=== PATIENT | female | born 1985 | race Asian ===

== ENCOUNTER 2016-09-15 22:51 | Emergency (ER) | payer OTHER ==
--- NOTE | 2016-09-15 23:15 | ER Document Report ---
ED Medical Screen (RME) - General Chief Complaint: Psych Problem Stated Complaint: PSYCH EVALUATION Mode of Arrival: Medic Information source: Patient Notes: Patient was found hanging outside of [facility] by law enforcement and EMS was called for possible psych evaluation. Patient states that she is currently homeless and has been staying at the [facility] for the past 3 days. Patient denies any current complaints aside from anxiety and stress. Patient states that she takes Adderall, Xanax and Ambien although denies any medical problems. Patient denies any visual or auditory hallucinations. Patient denies any suicidal or homicidal ideation. TRAVEL OUTSIDE OF THE [place] IN LAST 30 DAYS: No - Related Data Allergies/Adverse Reactions: tramadol [Tramadol] Allergy (Verified 11/21/14 05:52) Past Medical History Renal/ Medical History: Denies: Hx Peritoneal Dialysis Psychiatric Medical History: Reports: Hx Attention Deficit Hyperactivity Disorder, Hx Depression Past Surgical History: Reports: Hx Breast Surgery - augmentation - Immunizations Hx Diphtheria, Pertussis, Tetanus Vaccination: Yes Physical Exam - Vital signs Vitals: Temp Pulse Resp BP Pulse Ox 98.1 F 109 H 18 137/101 H 98 09/15/16 23:06 09/15/16 23:06 09/15/16 23:06 09/15/16 23:06 09/15/16 23:06 - Neurological Lugoff Coma Scale Eye Opening: Spontaneous Mirza Coma Scale Verbal: Oriented Lugoff Coma Scale Motor: Obeys Commands Lugoff Coma Scale Total: 15 - Psychological Associated symptoms: Flat affect, Other - Patient slow to respond to questions. Course - Vital Signs Vital signs: Temp Pulse Resp BP Pulse Ox 98.1 F 109 H 18 137/101 H 98 09/15/16 23:06 09/15/16 23:06 09/15/16 23:06 09/15/16 23:06 09/15/16 23:06
[2016-09-16 02:22] LABS: ABSOLUTE BASOPHILS # (AUTO) 0.1 10^3/uL (0.0-0.2); ABSOLUTE EOSINOPHILS # (AUTO) 0.3 10^3/uL (0.0-0.6); ABSOLUTE LYMPHOCYTES (AUTO) 2.4 10^3/uL (0.5-4.7); ABSOLUTE MONOCYTES (AUTO) 1.2 10^3/uL (0.1-1.4); ABSOLUTE NEUT (AUTO) 9.9 10^3/uL (1.7-8.2); BASOPHILS % (AUTO) 0.8 % (0-2); EOSINOPHILS % (AUTO) 1.9 % (0-6); HEMOGLOBIN 15.5 g/dL (12.0-15.5); HGB HCT DIFFERENCE 1.5; LYMPHOCYTES % (AUTO) 17.1 % (13-45); MEAN CORPUSCULAR HEMOGLOBIN 31.1 pg (27.0-33.4); MEAN CORPUSCULAR HGB CONC 34.4 g/dL (32.0-36.0); MEAN CORPUSCULAR VOLUME 91 fl (80-97); MONOCYTES % (AUTO) 8.9 % (3-13); RED BLOOD COUNT 4.98 10^6/uL (3.72-5.28); RED CELL DISTRIBUTION WIDTH 13.1 % (11.5-14.0); SEGMENTED NEUTROPHILS % (AUTO) 71.3 % (42-78); WHITE BLOOD COUNT 13.9 10^3/uL (4.0-10.5)
[2016-09-16 02:52] LABS: ALANINE AMINOTRANSFERASE 23 U/L (9-52); ALBUMIN 5.1 g/dL (3.5-5.0); ALKALINE PHOSPHATASE 74 U/L (38-126); ASPARTATE AMINO TRANSFERASE 20 U/L (14-36); BILIRUBIN,DIRECT 0.3 mg/dL (0.0-0.4); BILIRUBIN,TOTAL 1.1 mg/dL (0.2-1.3); BLOOD UREA NITROGEN 10 mg/dL (7-20); CALCIUM 9.6 mg/dL (8.4-10.2); CHLORIDE 99 mmol/L (98-107); CREATININE RESULT 0.72 mg/dL (0.52-1.25); GLUCOSE 101 mg/dL (75-110); POTASSIUM 3.4 mmol/L (3.6-5.0); SODIUM 141.9 mmol/L (137-145); TOTAL PROTEIN 8.7 g/dL (6.3-8.2)
[2016-09-16 02:55] LABS: ALCOHOL < 10 mg/dL (NONE DETECTED); ANION GAP 19 (5-19); CARBON DIOXIDE 24 mmol/L (22-30)
--- NOTE | 2016-09-16 07:04 | ER Document Report ---
ED General - General Mode of Arrival: Medic Information source: Patient TRAVEL OUTSIDE OF THE [place].S. IN LAST 30 DAYS: No - HPI Onset: This morning Associated symptoms: Other - see notes above <ANITHA LI - Last Filed: 09/16/16 09:34> <JOLANTA BABB - Last Filed: 10/05/16 15:37> - General Chief Complaint: Psych Problem Stated Complaint: PSYCH EVALUATION Notes: 31 year old female with history of ADHD and anxiety presents to the ED after [employer] was called when a local [employer] found the patient in their store for the past 3 days. Patient reports that she wasn't causing any trouble and was walking around the store. Patient states that she recently released from group home after being charged for trespassing at the [facility]. Patient states that she has family around the area, but does not know their phone number or where they live. (ANITHA LI) - Related Data Allergies/Adverse Reactions: tramadol [Tramadol] Allergy (Verified 11/21/14 05:52) Past Medical History - General Information source: Patient - Social History Smoking Status: Unknown if Ever Smoked Family History: Reviewed & Not Pertinent Patient has suicidal ideation: No Patient has homicidal ideation: No Renal/ Medical History: Denies: Hx Peritoneal Dialysis Psychiatric Medical History: Reports: Hx Anxiety, Hx Attention Deficit Hyperactivity Disorder, Hx Depression Past Surgical History: Reports: Hx Breast Surgery - augmentation - Immunizations Hx Diphtheria, Pertussis, Tetanus Vaccination: Yes <ANITHA LI - Last Filed: 09/16/16 09:34> Review of Systems - Review of Systems Constitutional: No symptoms reported EENT: No symptoms reported Cardiovascular: No symptoms reported Respiratory: No symptoms reported Gastrointestinal: No symptoms reported Genitourinary: No symptoms reported Female Genitourinary: No symptoms reported Musculoskeletal: No symptoms reported Skin: No symptoms reported Hematologic/Lymphatic: No symptoms reported Neurological/Psychological: No symptoms reported -: Yes All other systems reviewed and negative <ANITHA LI - Last Filed: 09/16/16 09:34> Physical Exam - Vital signs Interpretation: Tachycardic - General General appearance: Alert In distress: None - HEENT Head: Normocephalic, Atraumatic Eyes: Normal Extraocular movements intact: Yes Pupils: PERRL - Respiratory Respiratory status: No respiratory distress Breath sounds: Normal - Cardiovascular Rhythm: Regular, Tachycardia Heart sounds: Normal auscultation - Abdominal Inspection: Normal Distension: No distension Tenderness: Nontender - Back Back: Normal - Extremities General upper extremity: Normal inspection, Normal ROM General lower extremity: Normal inspection, Normal ROM, Normal weight bearing - Neurological Neuro grossly intact: Yes Cognition: Normal Orientation: AAOx4 Mirza Coma Scale Eye Opening: Spontaneous [place] Coma Scale Verbal: Oriented Mirza Coma Scale Motor: Obeys Commands Mirza Coma Scale Total: 15 Speech: Normal - Psychological Associated symptoms: Normal affect, Normal mood - Skin Skin Temperature: Warm Skin Moisture: Dry Skin Color: Normal <ANITHA LI - Last Filed: 09/16/16 09:34> Course - Laboratory Result Diagrams: 09/16/16 02:07 09/16/16 02:07 <ANITHA LI - Last Filed: 09/16/16 09:34> - Laboratory Result Diagrams: 09/16/16 02:07 09/16/16 02:07 <JOLANTA BABB - Last Filed: 10/05/16 15:37> - Re-evaluation Re-evalutation: 09/16/16 11:53 Patient presents emergency Department completely asymptomatic with has been walking around [facility] for 3 days because she is homeless. Says she just got out of group home where she was arrested for trespassing. She said she doesn't have any place to go right now they called for trespassing get at [facility] and the police brought her here to be evaluated she is of sound mind and judgment with a GCS of 15 and no current medical complaints however initial blood pressure was elevated and she was tachycardic at 1:15. She denies any drug or alcohol abuse. Fall workup ensued including EKG which showed sinus rhythm at 81 bpm due to the tachycardia did a further workup and it showed positive for amphetamines on her tox screen which could explain some of the tachycardia. She does not have an acute pulmonary embolus anemia or any acute abdominal findings or concerns at could otherwise be explained by the elevated heart rate. She is given a family doctor for follow-up in 2 days to recheck and reevaluate her blood pressure and for further assessment and evaluation. She is not suicidal homicidal and is stable for discharge. (JOLANTA BABB) - Vital Signs Vital signs: Temp Pulse Resp BP Pulse Ox 97.4 F 82 16 143/96 H 98 09/16/16 11:22 09/16/16 11:22 09/16/16 11:22 09/16/16 11:22 09/16/16 11:22 - Laboratory Laboratory results interpreted by me: 09/16/16 09/16/16 09/16/16 02:07 02:07 07:30 WBC 13.9 H Absolute Neutrophils 9.9 H Potassium 3.4 L Total Protein 8.7 H Albumin 5.1 H Urine Blood LARGE H Ur Leukocyte Esterase TRACE H Salicylates < 1.0 L Acetaminophen < 10 L - EKG Interpretation by Me Additional EKG results interpreted by me: 09/16/16 11:55 EKG shows sinus rhythm at [address] segment elevation or depression ( JOLANTA BABB) Discharge <ANITHA LI - Last Filed: 09/16/16 09:34> <JOLANTA BABB - Last Filed: 10/05/16 15:37> - Discharge Clinical Impression: medical evaluation, tachycardia with positive tox screen Condition: Stable Disposition: HOME, SELF-CARE Additional Instructions: You have been seen and evaluated in the emergency department after the police were notified when your at [facility]. Right now he don't have any complaints of any headache blurred vision double vision chest pain shortness of breath you have contacted the shelters have not responded to you yet. Initially on examination her blood pressure was slightly elevated I'm giving you a family doctor for follow-up to get that rechecked reevaluated. Otherwise with no current complaints or acute findings that he follow primary care physician to 3 days return to the emergency per minute sooner for increasing worsening or new symptoms Referrals: [facility] [Provider Group] - Follow up in 3-5 days (Follow-up appointment to be seen in 2-3 days with primary care physician return for increasing worsening or new symptoms) Scribe Attestation: 09/16/16 11:57 I personally performed the services described in the documentation reviewed the documentation recorded by my scribe in my presence and it accurately and completely records my words and actions (JOLANTA BABB) Scribe Documentation - Scribe Written by Soila:: Soila Bowman, 09/16/2016 0944 acting as scribe for :: Branden <ANITHA LI - Last Filed: 09/16/16 09:34>
[2016-09-16 08:26] LABS: APPEARANCE,URINE CLEAR; BILIRUBIN,URINE NEGATIVE (NEGATIVE); GLUCOSE, URINE NEGATIVE (NEGATIVE); KETONES,URINE NEGATIVE (NEGATIVE); LEUKOCYTE ESTERASE,URINE TRACE (NEGATIVE); NITRITE,URINE NEGATIVE (NEGATIVE); PROTEIN,URINE NEGATIVE (NEGATIVE); URINE SPECIFIC GRAVITY 1.005; UROBILINOGEN,URINE NEGATIVE mg/dL (<2.0)
[2016-09-16 08:42] LABS: URINE BARBITURATES SCREEN NEGATIVE; URINE METHADONE SCREEN NEGATIVE; URINE OPIATES LOW NEGATIVE; URINE PHENCYCLIDINE SCREEN NEGATIVE
[2016-09-16 08:51] LABS: TROPONIN I < 0.012 ng/mL
[2016-09-16 11:24] VITALS: BP 143/96
--- NOTE | 2016-09-17 17:01 | EKG REPORT ---
SEVERITY:- NORMAL ECG - SINUS RHYTHM : Confirmed by: Idalmis Torres MD 17-Sep-2016 17:00:23
== END 2016-09-16 12:05 | disposition home or self-care (01) ==
LOC: ER 22:51
DX: R00.0 Tachycardia, unspecified (principal); T43.622A Poisoning by amphetamines, intentional self-harm, initial encounter; F90.9 Attention-deficit hyperactivity disorder, unspecified type; Y92.512 Supermarket, store or market as the place of occurrence of the external cause; Z88.6 Allergy status to analgesic agent; Z59.0 Homelessness
CPT/HCPCS: 36415; 71020; 80053; 80307; 81001; 82553; 84484; 84703; 85025; 85379; 93005; 93010; 99284

== ENCOUNTER 2018-04-24 14:47 | Inpatient (IN) | payer OTHER ==
[2018-04-24] MEDS ORDERED: KETOROLAC TROMETHAMINE INJ/PF 30 MG/1 ML SDV IV ONE (15:59)
[2018-04-24] MEDS ORDERED: ONDANSETRON HCL INJ/PF 4 MG/2 ML SDV IV ONE ×2 (15:59→21:23)
[2018-04-24] MEDS ORDERED: DICYCLOMINE HCL INJ 20 MG/2 ML AMPULE IM ONE (16:00)
--- NOTE | 2018-04-24 16:02 | ER Document Report ---
ED Medical Screen (RME) - General Chief Complaint: Vaginal Pain Stated Complaint: ABDOMINAL PAIN Time Seen by Provider: 04/24/18 15:56 Notes: Diffuse abdominal pain, nausea vomiting, loose stools since this morning. Diffuse tenderness over the abdomen, palpable fecal mass TRAVEL OUTSIDE OF THE [place] IN LAST 30 DAYS: No - Related Data Allergies/Adverse Reactions: tramadol [Tramadol] Allergy (Verified 04/24/18 14:49) Past Medical History Renal/ Medical History: Denies: Hx Peritoneal Dialysis Psychiatric Medical History: Reports: Hx Anxiety, Hx Attention Deficit Hyperactivity Disorder, Hx Depression Past Surgical History: Reports: Hx Breast Surgery - augmentation - Immunizations Hx Diphtheria, Pertussis, Tetanus Vaccination: Yes Physical Exam - Vital signs Vitals: Temp Pulse Resp BP Pulse Ox 99.0 F 107 H 16 113/81 97 04/24/18 15:21 04/24/18 15:21 04/24/18 15:21 04/24/18 15:21 04/24/18 15:21 Course - Vital Signs Vital signs: Temp Pulse Resp BP Pulse Ox 99.0 F 107 H 16 113/81 97 04/24/18 15:21 04/24/18 15:21 04/24/18 15:21 04/24/18 15:21 04/24/18 15:21
[2018-04-24 16:42] LABS: HEMATOCRIT 40.7 % (36.0-47.0); HEMOGLOBIN 13.9 g/dL (12.0-15.5); MEAN CORPUSCULAR HGB CONC 34.2 g/dL (32.0-36.0); MEAN CORPUSCULAR VOLUME 91 fl (80-97); PLATELET COUNT 327 10^3/uL (150-450); RED BLOOD COUNT 4.48 10^6/uL (3.72-5.28); WHITE BLOOD COUNT 24.9 10^3/uL (4.0-10.5)
[2018-04-24 16:53] LABS: APPEARANCE,URINE SLIGHTLY-CLOUDY; BILIRUBIN,URINE NEGATIVE (NEGATIVE); COLOR,URINE YELLOW; GLUCOSE, URINE NEGATIVE (NEGATIVE); KETONES,URINE NEGATIVE (NEGATIVE); LEUKOCYTE ESTERASE,URINE MODERATE (NEGATIVE); NITRITE,URINE NEGATIVE (NEGATIVE); PROTEIN,URINE 30 mg/dL (NEGATIVE); URINE SPECIFIC GRAVITY 1.026; UROBILINOGEN,URINE NEGATIVE mg/dL (<2.0)
[2018-04-24 16:56] LABS: ALANINE AMINOTRANSFERASE 16 U/L (9-52); ALBUMIN 4.4 g/dL (3.5-5.0); ALKALINE PHOSPHATASE 65 U/L (38-126); ANION GAP 17 (5-19); ASPARTATE AMINO TRANSFERASE 16 U/L (14-36); BILIRUBIN,DIRECT 0.2 mg/dL (0.0-0.4); BILIRUBIN,TOTAL 0.7 mg/dL (0.2-1.3); BLOOD UREA NITROGEN 15 mg/dL (7-20); CALCIUM 9.3 mg/dL (8.4-10.2); CARBON DIOXIDE 22 mmol/L (22-30); CHLORIDE 99 mmol/L (98-107); GLUCOSE 107 mg/dL (75-110); POTASSIUM 3.9 mmol/L (3.6-5.0); SODIUM 137.9 mmol/L (137-145); TOTAL PROTEIN 7.8 g/dL (6.3-8.2)
[2018-04-24 17:03] LABS: ABSOLUTE LYMPHOCYTES# (MANUAL) 1.5 10^3/uL (0.5-4.7); ABSOLUTE MONOCYTES # (MANUAL) 0.2 10^3/uL (0.1-1.4); ABSOLUTE NEUTROPHILS# (MANUAL) 23.2 10^3/uL (1.7-8.2); BAND NEUTROPHILS % (MANUAL) 7 % (3-5); BASOPHILS % (MANUAL) 0 % (0-2); EOSINOPHILS % (MANUAL) 0 % (0-6); LYMPHOCYTES % (MANUAL) 4 % (13-45); MONOCYTES % (MANUAL) 1 % (3-13); SEGMENTED NEUTROPHILS % (MAN) 86 % (42-78); TOTAL CELLS COUNTED 100
[2018-04-24 17:05] LABS: PLATELET COMMENT ADEQUATE; RBC MORPHOLOGY COMMENT NORMO-CYTIC/CHROMIC; TOXIC GRANULATION SLIGHT; TOXIC VACUOLATION PRESENT
--- NOTE | 2018-04-24 17:40 | RADIOLOGY REPORT (SQ) ---
EXAM DESCRIPTION: ACUTE ABDOMEN SERIES COMPLETED DATE/TIME: 04/24/2018 5:28 pm REASON FOR STUDY: abdominal pain COMPARISON: None. NUMBER OF VIEWS: Three views. TECHNIQUE: Frontal chest, supine abdomen and upright/decubitus abdomen radiographic images acquired. LIMITATIONS: None. FINDINGS: CHEST: Lungs clear of infiltrates. FREE AIR: None. No abnormal gas collections. BOWEL GAS PATTERN: Nonobstructive pattern. No dilated loops or air fluid levels. CALCIFICATIONS: No suspicious calcifications. HARDWARE: An IUD is present. SOFT TISSUES: No gross mass or suggestion of organomegaly. BONES: No acute fracture. No worrisome bone lesions. OTHER: No other significant finding. IMPRESSION: NO RADIOGRAPHIC EVIDENCE FOR ACUTE ABDOMINAL DISEASE. TECHNICAL DOCUMENTATION: JOB ID: [id number] [employer]- All Rights Reserved Reading location - IP/workstation name: [email or web address]
[2018-04-24] MEDS ORDERED: LIDOCAINE 1% INJ-PF (10 MG/ML) 30 ML SDV INJ ONE (18:57)
[2018-04-24] MEDS ORDERED: CEFTRIAXONE INJ 250 MG VIAL IM ONE (18:57)
[2018-04-24] MEDS ORDERED: AZITHROMYCIN 250 MG TABLET PO ONE (18:57)
--- NOTE | 2018-04-24 19:03 | ER Document Report ---
ED GI/ - General Chief Complaint: Vaginal Pain Stated Complaint: ABDOMINAL PAIN Time Seen by Provider: 04/24/18 15:56 Mode of Arrival: Ambulatory Information source: Patient Notes: 32-year old female presents to ED for complaint of severe abdominal pain nausea and vomiting pelvic pain with vaginal discharge and painful urination last 4 days. She states she has had a fever nausea and vomiting since yesterday. Alert and oriented respirations regular and unlabored. She was seen in the pit area before I saw her. TRAVEL OUTSIDE OF THE [place] IN LAST 30 DAYS: No - Related Data Allergies/Adverse Reactions: tramadol [Tramadol] Allergy (Verified 04/24/18 14:49) Past Medical History - General Last Menstrual Period: 04/16/18 - Social History Smoking Status: Never Smoker Chew tobacco use (# tins/day): No Frequency of alcohol use: Rare Drug Abuse: None Family History: Reviewed & Not Pertinent Patient has suicidal ideation: No Patient has homicidal ideation: No Renal/ Medical History: Denies: Hx Peritoneal Dialysis Psychiatric Medical History: Reports: Hx Anxiety, Hx Attention Deficit Hyperactivity Disorder, Hx Depression Past Surgical History: Reports: Hx Breast Surgery - augmentation - Immunizations Hx Diphtheria, Pertussis, Tetanus Vaccination: Yes Review of Systems - Review of Systems Notes: REVIEW OF SYSTEMS: CONSTITUTIONAL : She states she has had fevers chills abdominal pain vaginal pain painful urination and pelvic pain with nausea and vomiting for the last 4 days EENT: Denies eye, ear, throat, or mouth pain or symptoms. Denies nasal or sinus congestion or discharge. Denies throat, tongue, or mouth swelling or difficulty swallowing. CARDIOVASCULAR: Denies chest pain. Denies palpitations or racing or irregular heart beat. Denies ankle edema. RESPIRATORY: Denies cough, cold, or chest congestion. Denies shortness of breath, difficulty breathing, or wheezing. GASTROINTESTINAL: She complains of severe generalized abdominal pain and pelvic pain with vaginal discharge nausea and vomiting. She denies diarrhea . Denies blood in vomitus, stools, or per rectum. Denies black, tarry stools. Denies constipation. GENITOURINARY: Patient complains of burning painful urination for the last 4 days FEMALE GENITOURINARY: Patient complains of pelvic pain vaginal discharge for the last 4 days MUSCULOSKELETAL: Denies back or neck pain or stiffness. Denies joint pain or swelling. SKIN: Denies rash, lesions or sores. HEMATOLOGIC : Denies easy bruising or bleeding. LYMPHATIC: Denies swollen, enlarged glands. NEUROLOGICAL: Denies confusion or altered mental status. Denies passing out or loss of consciousness. Denies dizziness or lightheadedness. Denies headache. Denies weakness or paralysis or loss of use of either side. Denies problems with gait or speech. Denies sensory loss, numbness, or tingling. Denies seizures. PHYSICAL EXAMINATION: GENERAL: [id number], well-nourished and in no acute distress. HEAD: Atraumatic, normocephalic. EYES: Pupils equal round and reactive to light, extraocular movements intact, conjunctiva are normal. ENT: Nares patent, oropharynx clear without exudates. Moist mucous membranes. NECK: Normal range of motion, supple without lymphadenopathy LUNGS: Breath sounds clear to auscultation bilaterally and equal. No wheezes rales or rhonchi. HEART: Regular rate and rhythm without murmurs ABDOMEN: Abdomen soft very tender generalized with severe tenderness to the pelvic area. She states her pelvic is to painful at this time to take a speculum. Patient was self swabs with the swab she stated she would rather do that. Female : deferred Musculoskeletal: Normal range of motion, no pitting or edema. No cyanosis. NEUROLOGICAL: Cranial nerves grossly intact. Normal speech, normal gait. Normal sensory, motor exams PSYCH: Normal mood, normal affect. SKIN: Warm, Dry, normal turgor, no rashes or lesions noted. PSYCHIATRIC: Denies anxiety or stress. Denies depression, suicidal ideation, or homicidal ideation. ALL OTHER SYSTEMS REVIEWED AND NEGATIVE. Dictation was performed using [employer] voice recognition software Physical Exam - Vital signs Vitals: Temp Pulse Resp BP Pulse Ox 99.0 F 107 H 16 113/81 97 04/24/18 15:21 04/24/18 15:21 04/24/18 15:21 04/24/18 15:21 04/24/18 15:21 Course - Re-evaluation Re-evalutation: 04/24/18 21:[address] Peacock who stated the patient needed to be admitted to hospitalist for sepsis. Consult to Dr. Harp, the Hospital, who stated the patient looked more dehydration according to the labs, than septic and that she needed to be examined by [facility] before Dr Harp would accept the patient. 04/25/18 01:04 When the results of the GC and Chlamydia came back I called Dr. Anton Morrell for admission. He accepted the patient for PID sepsis and stated she could go to the second floor. He recommended Rocephin and doxycycline be ordered IV these were ordered before she went to the floor. - Vital Signs Vital signs: Temp Pulse Resp BP Pulse Ox 98.7 F 107 H 19 113/75 100 04/24/18 22:00 04/24/18 15:21 04/24/18 22:08 04/24/18 22:08 04/24/18 22:08 - Laboratory Result Diagrams: 04/24/18 16:27 04/24/18 16:27 Laboratory results interpreted by me: 04/24/18 04/24/18 04/24/18 16:27 16:27 16:27 WBC 24.9 H Seg Neuts % (Manual) 86 H Band Neutrophils % 7 H Lymphocytes % (Manual) 4 L Monocytes % (Manual) 1 L Abs Neuts (Manual) 23.2 H Creatinine 0.48 L Lactic Acid Urine Protein 30 H Urine Blood MODERATE H Ur Leukocyte Esterase MODERATE H N.gonorrhoeae DNA (PCR) 04/24/18 04/24/18 19:20 19:35 WBC Seg Neuts % (Manual) Band Neutrophils % Lymphocytes % (Manual) Monocytes % (Manual) Abs Neuts (Manual) Creatinine Lactic Acid 2.3 H Urine Protein Urine Blood Ur Leukocyte Esterase N.gonorrhoeae DNA (PCR) DETECTED H Discharge - Discharge Clinical Impression: Pelvic pain, PID (acute pelvic inflammatory disease), Gonorrhea Abdominal pain Qualifiers: Abdominal location: lower abdomen, unspecified Qualified Code(s): R10.30 - Lower abdominal pain, unspecified Sepsis Qualifiers: Sepsis type: sepsis due to unspecified organism Qualified Code(s): A41.9 - Sepsis, unspecified organism Disposition: ADMITTED INPATIENT Admitting Provider: [facility]
[2018-04-24] MEDS ORDERED: LEVOFLOXACIN 500 MG/D5W RTU 500 MG/100 ML RTUPB IV ONE (19:31)
[2018-04-24] MEDS ORDERED: VANCOMYCIN HCL INJ 1000 MG VIAL IV ONE (19:32)
[2018-04-24] MEDS ORDERED: RINGERS SOLUTION,LACTATED 1,000 ML IV ONE (19:35)
[2018-04-24 19:39] LABS: BACTERIA (WET MOUNT) 3+ BACTERIA SEEN; EPITHELIALS (WET MOUNT) 3+ EPITHELIALS SEEN; T.VAGINALIS (WET MOUNT) NO TRICHOMONAS SEEN; WBCS (WET MOUNT) 3+ WBCS SEEN; YEAST (WET MOUNT) NO YEAST SEEN
--- NOTE | 2018-04-24 20:44 | RADIOLOGY REPORT (SQ) ---
EXAM DESCRIPTION: CT ABD/PELVIS WITH IV ONLY COMPLETED DATE/TIME: 04/24/2018 8:19 pm REASON FOR STUDY: abdominal pain pelvic pain fever COMPARISON: None. TECHNIQUE: CT scan of the abdomen and pelvis performed using helical scanning technique with dynamic intravenous contrast injection. No oral contrast. Images reviewed with lung, soft tissue, and bone windows. Reconstructed coronal and sagittal MPR images reviewed. Delayed images for evaluation of the urinary system also acquired. All images stored on PACS. All CT scanners at this facility use dose modulation, iterative reconstruction, and/or weight based d osing when appropriate to reduce radiation dose to as low as reasonably achievable (ALARA). [facility]: Dose Right [facility]: CareDose [facility]: Dose Right [facility]: Teradose 4D [facility]: TRA CONTRAST TYPE AND DOSE: contrast/concentration: Isovue 350.00 mg/ml; Total Contrast Delivered: 61.0 ml; Total Saline Delivered: 53.0 ml RENAL FUNCTION: BUN 15 creatinine 0.5 RADIATION DOSE: CT Rad equipment meets quality standard of care and radiation dose reduction techniq ues were employed. CTDIvol: 4.8 - 4.9 mGy. DLP: 506 mGy-cm.. LIMITATIONS: None. FINDINGS: LOWER CHEST: No significant findings. No nodules or infiltrates. LIVER: Normal size. No masses. No dilated ducts. SPLEEN: Normal size. No focal lesions. PANCREAS: No masses. No significant calcifications. No adjacent inflammation or peripancreatic fluid collections. Pancreatic duct not dilated. GALLBLADDER: No identified stones by CT criteria. No inflammatory changes to suggest cholecystitis. ADRENAL GLANDS: No significant masses or asymmetry. RIGHT KIDNEY AND URETER: No solid masses. No significant calcifications. No hydronephrosis or hyd roureter. LEFT KIDNEY AND URETER: No solid masses. No significant calcifications. No hydronephrosis or hydr oureter. AORTA AND VESSELS: No aneurysm. No dissection. Renal arteries, SMA, celiac without stenosis. RETROPERITONEUM: No retroperitoneal adenopathy, hemorrhage or masses. BOWEL AND PERITONEAL CAVITY: There is some radiopaque material in the right colon. There is a modera te amount of stool in the colon. No bowel inflammatory changes are seen. No bowel mass is seen. APPENDIX: Normal. PELVIS: Urinary bladder is normal. An IUD is present in the uterus. No pelvic mass is seen. No sig nificant free fluid is seen in the pelvis. ABDOMINAL WALL: No masses. No hernias. BONES: No significant or acute findings. OTHER: No other significant finding. IMPRESSION: NO SIGNIFICANT OR ACUTE FINDING IN THE ABDOMEN OR PELVIS ON CT SCAN WITH IV CONTRAST. TECHNICAL DOCUMENTATION: JOB ID: [id number] Quality ID # [id number]: Final reports with documentation of one or more dose reduction techniques (e.g., Au tomated exposure control, adjustment of the mA and/or kV according to patient size, use of iterative reconstruction technique) 2010 [employer]- All Rights Reserved Reading location - IP/workstation name: [email or web address]
[2018-04-24 21:04] LABS: CHLAM PCR NOT DETECTED (NOT DETECT); GON PCR DETECTED (NOT DETECT)
[2018-04-24] MEDS ORDERED: MORPHINE SULFATE 10 MG/ML INJ IV ONE (21:23)
[2018-04-24] MEDS ORDERED: CEFTRIAXONE 1 GM/D5W RTU 1 GM/50 ML RTUPB IV ONE (22:03)
[2018-04-24] MEDS ORDERED: DOXYCYCLINE HYCLATE INJ 100 MG VIAL IV ONE (22:03)
[2018-04-24] MEDS ORDERED: NORMAL SALINE 500 ML IV ONE (22:11)
--- NOTE | 2018-04-24 22:46 | PDOC H&P ---
History of Present Illness Admission Date/PCP: 04/24/18 22:16 Patient complains of: Pelvic pain and discharge. History of Present Illness: MARY FLETCHER is a 32 year old female presenting with pelvic pain and discharge. Past Medical History LMP: 04/16 Gynecological Infection: Yes - gc Psychiatric Medical History: Reports: Attention Deficit Hyperactivity Disorder, Depression Social History Smoking Status: Never Smoker Frequency of Alcohol Use: Social Hx Prescription Drug Abuse: Yes Family History Family History: Reviewed & Not Pertinent Parental Family History Reviewed: Yes Children Family History Reviewed: Yes Sibling(s) Family History Reviewed.: Yes Medication/Allergy Home Medications: Citalopram Hydrobromide [Celexa 20 mg Tablet] 20 mg PO QHS 11/21/14 Dextroamphetamine/Amphetamine [Adderall 20 mg Tablet] 1 tab PO QID 11/21/14 Zolpidem Tartrate [Ambien 5 mg Tablet] 5 mg PO HSP PRN 11/21/14 Allergies/Adverse Reactions: tramadol [Tramadol] Allergy (Verified 04/24/18 14:49) Physical Exam - Physical Exam Vital Signs: Temp Pulse Resp BP Pulse Ox 98.7 F 107 H 16 113/81 97 04/24/18 22:00 04/24/18 15:21 04/24/18 15:21 04/24/18 15:21 04/24/18 15:21 General appearance: PRESENT: mild distress Head exam: PRESENT: atraumatic, normocephalic Respiratory exam: PRESENT: unlabored Cardiovascular exam: PRESENT: RRR Vascular exam: PRESENT: normal capillary refill GI/Abdominal exam: PRESENT: tenderness Neurological exam: PRESENT: alert - Gynecological Exam Labia: other - ER did pelvic and reports tenderness Result Impressions: Acute Abdomen Series 04/24/18 16:00 IMPRESSION: NO RADIOGRAPHIC EVIDENCE FOR ACUTE ABDOMINAL DISEASE. Abdomen/Pelvis CT 04/24/18 19:29 IMPRESSION: NO SIGNIFICANT OR ACUTE FINDING IN THE ABDOMEN OR PELVIS ON CT SCAN WITH IV CONTRAST. Assessment & Plan - Diagnosis (1) Gonorrhea Is this a current diagnosis for this admission?: Yes (2) PID (acute pelvic inflammatory disease) Is this a current diagnosis for this admission?: Yes - Time Time Spent: 30 to 50 Minutes Anticipated discharge: Home Within: within 72 hours - Plan Summary Plan Summary: Plan to begin Cefoxitan and Doxycycline
[2018-04-24] MEDS ORDERED: OXYCODONE-ACETAMINOPHEN 5-325 MG TABLET PO PRN (22:50)
[2018-04-24] MEDS ORDERED: ACETAMINOPHEN 325 MG TABLET PO PRN (22:50)
[2018-04-24] MEDS ORDERED: PROMETHAZINE HCL INJ 25 MG/1 ML VIAL IV PRN (22:50)
[2018-04-24] MEDS ORDERED: ZOLPIDEM TARTRATE 5 MG TABLET PO PRN (22:52)
[2018-04-24] MEDS ORDERED: DOXYCYCLINE HYCLATE INJ 100 MG VIAL IV SCH (23:00)
[2018-04-24] MEDS ORDERED: DOXYCYCLINE HYCLATE 100 MG in DEXTROSE 5%-WATER 250 ML IV ONE (23:15)
[2018-04-24] MEDS: IBUPROFEN 800 MG TABLET PO SCH (23:50)
[2018-04-24] MEDS: OXYCODONE-ACETAMINOPHEN 5-325 MG TABLET PO PRN (23:50)
--- NOTE | 2018-04-25 01:25 | RADIOLOGY REPORT (SQ) ---
EXAM DESCRIPTION: US TRANSVAGINAL COMPLETED DATE/TME: 04/24/2018 19:28 CLINICAL HISTORY: 32 years, Female, pelvic pain discharge fever COMPARISON: CT from today's date TECHNIQUE: Transverse and longitudinal transvaginal sonographic images of the pelvis LIMITATIONS: None. FINDINGS: The uterus measures 7.3 x 4.0 x 5.2 cm. Slight heterogeneity of the myometrium. There is a 1.9 x 1.6 x 1.3 cm fibroid in the posterior uterine body. IUD within the endometrial canal, with the endometrium measuring approximately 4 mm in thickness. The right ovary is not well seen due to bowel. The left ovary measures 2.8 x 2.1 x 2.0 cm. Left ovarian follicles. No solid adnexal mass. Doppler and spectral analysis with color flow shows normal flow to the left ovary. No free fluid. IMPRESSION: Posterior uterine fibroid. IUD in place. Nonvisualization of the right ovary, due to overlying bowel. Remainder unremarkable copyright 2010 [employer]- All Rights Reserved
[2018-04-25] MEDS: IBUPROFEN 800 MG TABLET PO SCH ×4 (05:02→23:41)
[2018-04-25] MEDS: OXYCODONE-ACETAMINOPHEN 5-325 MG TABLET PO PRN ×3 (05:03→19:53)
[2018-04-25 07:03] LABS: HEMATOCRIT 36.1 % (36.0-47.0); HEMOGLOBIN 12.2 g/dL (12.0-15.5); MEAN CORPUSCULAR HEMOGLOBIN 31.3 pg (27.0-33.4); MEAN CORPUSCULAR HGB CONC 33.8 g/dL (32.0-36.0); MEAN CORPUSCULAR VOLUME 93 fl (80-97); PLATELET COUNT 284 10^3/uL (150-450); RED BLOOD COUNT 3.89 10^6/uL (3.72-5.28); RED CELL DISTRIBUTION WIDTH 13.1 % (11.5-14.0); WHITE BLOOD COUNT 21.4 10^3/uL (4.0-10.5)
[2018-04-25] MEDS: RINGERS SOLUTION,LACTATED 1,000 ML IV PRN ×2 (08:18→19:54)
[2018-04-25] MEDS ORDERED: (PENDING PHARMACY ID) (Dextroamphetamine/Amphetamine [Adderall 20 Mg Tablet] 1 TAB) PO SCH (10:00)
[2018-04-25] MEDS: DOCUSATE SODIUM 100 MG CAPSULE PO SCH ×2 (10:12→17:58)
[2018-04-25] MEDS: CEFOXITIN 1 GM/D5W RTU 1 GM/50 ML RTUPB IV SCH ×2 (10:12→21:12)
[2018-04-25] MEDS: DOXYCYCLINE HYCLATE 100 MG in DEXTROSE 5%-WATER 250 ML IV SCH ×2 (11:07→21:48)
--- NOTE | 2018-04-25 13:05 | PDOC PROGRESS REPORT ---
Subjective Progress Note for:: 04/25/18 Subjective:: Patient states that she feels much better today; pain controlled. Patient denies chest pain, shortness of breath, fever/chills nausea/vomiting. She is ambulating voiding without difficulty. Reason For Visit: ABDOMINAL PAIN,PAIN IN PELVIS,ACUTE PELVIC INFLAMM Physical Exam - Physical Exam Vital Signs: Temp Pulse Resp BP Pulse Ox 97.5 F 68 13 95/58 L 99 04/25/18 11:20 04/25/18 11:20 04/25/18 11:20 04/25/18 11:20 04/25/18 11:20 Intake & Output 04/24/18 04/25/18 04/26/18 06:59 06:59 06:59 Intake Total 550 Balance 550 Weight 55.4 kg General appearance: PRESENT: no acute distress Respiratory exam: PRESENT: clear to auscultation naveen Cardiovascular exam: PRESENT: RRR GI/Abdominal exam: PRESENT: normal bowel sounds, soft, other - Mild tenderness Extremities exam: ABSENT: calf tenderness, clubbing, full ROM, joint swelling, pedal edema, tenderness, +1 edema, +2 edema, other - Gynecological Exam Labia: other - ER did pelvic and reports tenderness Result Laboratory Results: 04/25/18 06:04 04/24/18 04/25/18 23:46 06:04 WBC 21.4 H RBC 3.89 Hgb 12.2 Hct 36.1 MCV 93 MCH 31.3 MCHC 33.8 RDW 13.1 Plt Count 284 Lactic Acid 2.8 H Impressions: Acute Abdomen Series 04/24/18 16:00 IMPRESSION: NO RADIOGRAPHIC EVIDENCE FOR ACUTE ABDOMINAL DISEASE. Transvaginal US 04/24/18 19:28 IMPRESSION: Posterior uterine fibroid. IUD in place. Nonvisualization of the right ovary, due to overlying bowel. Remainder unremarkable copyright 2011 [employer]- All Rights Reserved Abdomen/Pelvis CT 04/24/18 19:29 IMPRESSION: NO SIGNIFICANT OR ACUTE FINDING IN THE ABDOMEN OR PELVIS ON CT SCAN WITH IV CONTRAST. Assessment & Plan - Diagnosis (1) Abdominal pain Qualifiers: Abdominal location: lower abdomen, unspecified Qualified Code(s): R10.30 - Lower abdominal pain, unspecified Is this a current diagnosis for this admission?: Yes (2) Gonorrhea Is this a current diagnosis for this admission?: Yes (3) PID (acute pelvic inflammatory disease) Is this a current diagnosis for this admission?: Yes (4) Pelvic pain Is this a current diagnosis for this admission?: Yes (5) Sepsis Qualifiers: Sepsis type: sepsis due to unspecified organism Qualified Code(s): A41.9 - Sepsis, unspecified organism Is this a current diagnosis for this admission?: Yes - Time Time Spent with patient: Less than 15 minutes - Plan Summary Plan Summary: Plan: 1. Continue antibiotic regimen 2. Daily CBC
[2018-04-25] MEDS: CITALOPRAM HYDROBROMIDE 20 MG TABLET PO SCH (21:12)
[2018-04-26] MEDS: IBUPROFEN 800 MG TABLET PO SCH ×3 (05:57→18:09)
[2018-04-26] MEDS: RINGERS SOLUTION,LACTATED 1,000 ML IV PRN (05:58)
[2018-04-26] MEDS: OXYCODONE-ACETAMINOPHEN 5-325 MG TABLET PO PRN ×3 (06:40→22:38)
[2018-04-26 06:59] LABS: ABSOLUTE EOSINOPHILS # (AUTO) 0.3 10^3/uL (0.0-0.6); ABSOLUTE LYMPHOCYTES (AUTO) 1.2 10^3/uL (0.5-4.7); ABSOLUTE MONOCYTES (AUTO) 0.9 10^3/uL (0.1-1.4); ABSOLUTE NEUT (AUTO) 14.5 10^3/uL (1.7-8.2); BASOPHILS % (AUTO) 0.1 % (0-2); EOSINOPHILS % (AUTO) 1.8 % (0-6); HEMATOCRIT 35.7 % (36.0-47.0); HEMOGLOBIN 12.2 g/dL (12.0-15.5); MEAN CORPUSCULAR HEMOGLOBIN 31.5 pg (27.0-33.4); MEAN CORPUSCULAR VOLUME 93 fl (80-97); MONOCYTES % (AUTO) 5.1 % (3-13); PLATELET COUNT 304 10^3/uL (150-450); RED BLOOD COUNT 3.86 10^6/uL (3.72-5.28); RED CELL DISTRIBUTION WIDTH 13.1 % (11.5-14.0); TOTAL CELLS COUNTED % (AUTO) 100 %; WHITE BLOOD COUNT 16.8 10^3/uL (4.0-10.5)
--- NOTE | 2018-04-26 09:57 | PDOC PROGRESS REPORT ---
Subjective Progress Note for:: 04/26/18 Subjective:: feeling better but still having pain. Reason For Visit: ABDOMINAL PAIN,PAIN IN PELVIS,ACUTE PELVIC INFLAMM Physical Exam - Physical Exam Vital Signs: Temp Pulse Resp BP Pulse Ox 98.0 F 74 16 115/83 98 04/26/18 07:51 04/26/18 07:51 04/26/18 07:51 04/26/18 07:51 04/26/18 07:51 Intake & Output 04/25/18 04/26/18 04/27/18 06:59 06:59 06:59 Intake Total 550 3125 Balance 550 3125 Weight 55.4 kg 58.4 kg General appearance: PRESENT: no acute distress, cooperative GI/Abdominal exam: PRESENT: soft - Gynecological Exam Labia: other - ER did pelvic and reports tenderness Result Laboratory Results: 04/26/18 06:33 04/26/18 06:33 WBC 16.8 H RBC 3.86 Hgb 12.2 Hct 35.7 L MCV 93 MCH 31.5 MCHC 34.0 RDW 13.1 Plt Count 304 Seg Neutrophils % 86.0 H Lymphocytes % 7.0 L Monocytes % 5.1 Eosinophils % 1.8 Basophils % 0.1 Absolute Neutrophils 14.5 H Absolute Lymphocytes 1.2 Absolute Monocytes 0.9 Absolute Eosinophils 0.3 Absolute Basophils 0.0 Impressions: Acute Abdomen Series 04/24/18 16:00 IMPRESSION: NO RADIOGRAPHIC EVIDENCE FOR ACUTE ABDOMINAL DISEASE. Transvaginal US 04/24/18 19:28 IMPRESSION: Posterior uterine fibroid. IUD in place. Nonvisualization of the right ovary, due to overlying bowel. Remainder unremarkable copyright 2011 [employer]- All Rights Reserved Abdomen/Pelvis CT 04/24/18 19:29 IMPRESSION: NO SIGNIFICANT OR ACUTE FINDING IN THE ABDOMEN OR PELVIS ON CT SCAN WITH IV CONTRAST. Assessment & Plan - Diagnosis (1) Abdominal pain Qualifiers: Abdominal location: lower abdomen, unspecified Qualified Code(s): R10.30 - Lower abdominal pain, unspecified Is this a current diagnosis for this admission?: Yes (2) Gonorrhea Is this a current diagnosis for this admission?: Yes (3) PID (acute pelvic inflammatory disease) Is this a current diagnosis for this admission?: Yes (4) Pelvic pain Is this a current diagnosis for this admission?: Yes (5) Sepsis Qualifiers: Sepsis type: sepsis due to unspecified organism Qualified Code(s): A41.9 - Sepsis, unspecified organism Is this a current diagnosis for this admission?: Yes - Time Time Spent with patient: Less than 15 minutes Anticipated discharge: Home Within: within 24 hours - Inpatient Certification Based on my medical assessment, after consideration of the patient's comorbidities, presenting symptoms, or acuity I expect that the services needed warrant INPATIENT care.: Yes I certify that my determination is in accordance with my understanding of Medicare's requirements for reasonable and necessary INPATIENT services [42 CFR 412.3e].: Yes Medical Necessity: Need for Pain Control, Need for IV Antibiotics - Plan Summary Plan Summary: plan for discharge in AM after full 48 hours of abx. d/w pt regarding + GC culture. indicates she will d/w partner.
[2018-04-26] MEDS: DOCUSATE SODIUM 100 MG CAPSULE PO SCH ×2 (10:03→23:32)
[2018-04-26] MEDS: CEFOXITIN 1 GM/D5W RTU 1 GM/50 ML RTUPB IV SCH ×2 (10:03→21:18)
[2018-04-26] MEDS: DOXYCYCLINE HYCLATE 100 MG in DEXTROSE 5%-WATER 250 ML IV SCH ×2 (11:08→22:35)
[2018-04-26] MEDS: CITALOPRAM HYDROBROMIDE 20 MG TABLET PO SCH (21:18)
[2018-04-27] MEDS: IBUPROFEN 800 MG TABLET PO SCH ×2 (00:55→06:08)
--- NOTE | 2018-04-27 07:21 | PDOC DISCHARGE SUMMARY ---
General - Admit/Disc Date/PCP Admission Date/Primary Care Provider: 04/24/18 22:16 Discharge Date: 04/27/18 - Discharge Diagnosis (1) Abdominal pain Is this a current diagnosis for this admission?: Yes (2) Gonorrhea Is this a current diagnosis for this admission?: Yes (3) PID (acute pelvic inflammatory disease) Is this a current diagnosis for this admission?: Yes (4) Pelvic pain Is this a current diagnosis for this admission?: Yes (5) Sepsis Is this a current diagnosis for this admission?: Yes - Additional Information Home Medications: Alprazolam [Xanax 0.5 mg Tablet] 0.5 mg PO BID 04/25/18 Dextroamphetamine/Amphetamine [Dextroamp-Amphetamin 20 mg Tab] 20 mg PO TID Eszopiclone [Eszopiclone] 1 mg PO QHS 04/25/18 History of Present Illness History of Present Illness: MARY FLETCHER is a 32 year old female Hospital Course Hospital Course: PID from GC infection. has responded well to IV Abx. Physical Exam - Physical Exam Vital Signs: Temp Pulse Resp BP Pulse Ox 98.5 F 72 16 127/87 H 96 04/26/18 23:49 04/26/18 23:49 04/26/18 23:49 04/26/18 23:49 04/26/18 23:49 Intake & Output 04/26/18 04/27/18 04/28/18 06:59 06:59 06:59 Intake Total 3125 1740 Balance 3125 1740 Weight 58.4 kg 56.2 kg General appearance: PRESENT: no acute distress, cooperative GI/Abdominal exam: PRESENT: soft, tenderness - minimal lower tenderness. improved - Gynecological Exam Labia: other - ER did pelvic and reports tenderness Result Laboratory Results: 04/26/18 06:33 Impressions: Acute Abdomen Series 04/24/18 16:00 IMPRESSION: NO RADIOGRAPHIC EVIDENCE FOR ACUTE ABDOMINAL DISEASE. Transvaginal US 04/24/18 19:28 IMPRESSION: Posterior uterine fibroid. IUD in place. Nonvisualization of the right ovary, due to overlying bowel. Remainder unremarkable copyright 2011 [employer]- All Rights Reserved Abdomen/Pelvis CT 04/24/18 19:29 IMPRESSION: NO SIGNIFICANT OR ACUTE FINDING IN THE ABDOMEN OR PELVIS ON CT SCAN WITH IV CONTRAST. Plan Discharge Plan: discharge home Time Spent: Less than 30 Minutes
[2018-04-27 08:18] VITALS: BP 141/97
[2018-04-27 09:05] LABS: ABSOLUTE EOSINOPHILS # (AUTO) 0.4 10^3/uL (0.0-0.6); ABSOLUTE LYMPHOCYTES (AUTO) 1.6 10^3/uL (0.5-4.7); ABSOLUTE MONOCYTES (AUTO) 0.6 10^3/uL (0.1-1.4); ABSOLUTE NEUT (AUTO) 6.1 10^3/uL (1.7-8.2); BASOPHILS % (AUTO) 0.5 % (0-2); EOSINOPHILS % (AUTO) 4.5 % (0-6); HEMATOCRIT 33.6 % (36.0-47.0); HEMOGLOBIN 11.6 g/dL (12.0-15.5); LYMPHOCYTES % (AUTO) 18.3 % (13-45); MEAN CORPUSCULAR HEMOGLOBIN 31.5 pg (27.0-33.4); MEAN CORPUSCULAR HGB CONC 34.4 g/dL (32.0-36.0); MEAN CORPUSCULAR VOLUME 92 fl (80-97); PLATELET COUNT 330 10^3/uL (150-450); RED BLOOD COUNT 3.67 10^6/uL (3.72-5.28); RED CELL DISTRIBUTION WIDTH 13.5 % (11.5-14.0); SEGMENTED NEUTROPHILS % (AUTO) 69.7 % (42-78); TOTAL CELLS COUNTED % (AUTO) 100 %; WHITE BLOOD COUNT 8.7 10^3/uL (4.0-10.5)
[2018-04-27] MEDS: CEFOXITIN 1 GM/D5W RTU 1 GM/50 ML RTUPB IV SCH (09:34)
[2018-04-27] MEDS: DOXYCYCLINE HYCLATE 100 MG in DEXTROSE 5%-WATER 250 ML IV SCH (09:40)
[2018-04-27] MEDS: OXYCODONE-ACETAMINOPHEN 5-325 MG TABLET PO PRN (09:44)
== END 2018-04-27 12:30 | disposition home or self-care (01) | DRG 759 ==
LOC: ER 14:47 → EH 22:16 → 2N 23:20
PROVIDERS: ADMIT Obstetrics & Gynecology; ATTEND Obstetrics & Gynecology
DX: A54.24 Gonococcal female pelvic inflammatory disease (principal); F90.9 Attention-deficit hyperactivity disorder, unspecified type; F32.9 Major depressive disorder, single episode, unspecified; Z97.5 Presence of (intrauterine) contraceptive device; Z23 Encounter for immunization
CPT/HCPCS: 36415; 74022; 74177; 76830; 80053; 81001; 81025; 83605; 85025; 85027; 87040; 87210; 87491; 87591; 90471; 90686; 94799; 96365; 96367; 96372; 96375; 96376; 99285; G0008; J0500; J0694; J0696; J1885; J1956; J2270; J2405; J2550; J3370; J3490; J7040; J7060; J7120

== ENCOUNTER 2020-02-19 12:26 | Emergency (ER) | payer OTHER ==
[2020-02-19] MEDS ORDERED: ONDANSETRON HCL INJ/PF 4 MG/2 ML SDV IV ONE (12:58)
[2020-02-19] MEDS ORDERED: NORMAL SALINE 1000 ML 1,000 ML IV ONE (12:58)
[2020-02-19 13:33] LABS: ABSOLUTE BASOPHILS # (AUTO) 0.1 10^3/uL (0.0-0.2); ABSOLUTE EOSINOPHILS # (AUTO) 0.2 10^3/uL (0.0-0.6); ABSOLUTE MONOCYTES (AUTO) 0.7 10^3/uL (0.1-1.4); ABSOLUTE NEUT (AUTO) 5.2 10^3/uL (1.7-8.2); BASOPHILS % (AUTO) 0.8 % (0-2); EOSINOPHILS % (AUTO) 2.1 % (0-6); HEMATOCRIT 44.1 % (36.0-47.0); HEMOGLOBIN 15.2 g/dL (12.0-15.5); LYMPHOCYTES % (AUTO) 24.9 % (13-45); MEAN CORPUSCULAR HEMOGLOBIN 30.2 pg (27.0-33.4); MEAN CORPUSCULAR HGB CONC 34.5 g/dL (32.0-36.0); MEAN CORPUSCULAR VOLUME 88 fl (80-97); MONOCYTES % (AUTO) 8.3 % (3-13); PLATELET COUNT 367 10^3/uL (150-450); RED BLOOD COUNT 5.04 10^6/uL (3.72-5.28); RED CELL DISTRIBUTION WIDTH 12.4 % (11.5-14.0); SEGMENTED NEUTROPHILS % (AUTO) 63.9 % (42-78); TOTAL CELLS COUNTED % (AUTO) 100 %; WHITE BLOOD COUNT 8.1 10^3/uL (4.0-10.5)
[2020-02-19 13:40] LABS: APPEARANCE,URINE SLIGHTLY-CLOUDY; BILIRUBIN,URINE NEGATIVE (NEGATIVE); COLOR,URINE YELLOW; GLUCOSE, URINE NEGATIVE (NEGATIVE); KETONES,URINE NEGATIVE (NEGATIVE); LEUKOCYTE ESTERASE,URINE NEGATIVE (NEGATIVE); NITRITE,URINE NEGATIVE (NEGATIVE); PROTEIN,URINE NEGATIVE (NEGATIVE); URINE SPECIFIC GRAVITY 1.026; UROBILINOGEN,URINE NEGATIVE mg/dL (<2.0)
--- NOTE | 2020-02-19 13:47 | RADIOLOGY REPORT (SQ) ---
EXAM DESCRIPTION: CHEST SINGLE VIEW IMAGES COMPLETED DATE/TIME: 02/19/2020 1:25 pm REASON FOR STUDY: sob covid + COMPARISON: 09/16/2016. EXAM PARAMETERS: NUMBER OF VIEWS: One view. TECHNIQUE: Single frontal radiographic view of the chest acquired. RADIATION DOSE: NA LIMITATIONS: None. FINDINGS: LUNGS AND PLEURA: No opacities, masses or pneumothorax. No pleural effusion. MEDIASTINUM AND HILAR STRUCTURES: No masses. Contour normal. HEART AND VASCULAR STRUCTURES: Heart normal in size. Normal vasculature. BONES: No acute findings. HARDWARE: None in the chest. OTHER: No other significant finding. IMPRESSION: NO ACUTE RADIOGRAPHIC FINDING IN THE CHEST. TECHNICAL DOCUMENTATION: JOB ID: [id number] 2010 [employer]- All Rights Reserved Reading location - IP/workstation name: [email or web address]
[2020-02-19 13:48] LABS: ALKALINE PHOSPHATASE 65 U/L (38-126); ANION GAP 10 (5-19); ASPARTATE AMINO TRANSFERASE 30 U/L (14-36); BILIRUBIN,DIRECT 0.2 mg/dL (0.0-0.4); BILIRUBIN,TOTAL 0.6 mg/dL (0.2-1.3); BLOOD UREA NITROGEN 15 mg/dL (7-20); CALCIUM 8.9 mg/dL (8.4-10.2); CARBON DIOXIDE 22 mmol/L (22-30); CHLORIDE 107 mmol/L (98-107); GLUCOSE 126 mg/dL (75-110); POTASSIUM 3.8 mmol/L (3.6-5.0); TOTAL PROTEIN 7.2 g/dL (6.3-8.2)
--- NOTE | 2020-02-19 13:49 | ER Document Report ---
ED GI/ - General Chief Complaint: Cough Stated Complaint: SHORT OF BREATH,NO TASTE,FEVER Time Seen by Provider: 02/19/20 13:06 Notes: CHIEF COMPLAINT: Vomiting cough shortness of breath HPI: 34-year-old female who was diagnosed COVID +6 days ago at [facility] presenting with increased cough with some shortness of breath, nausea and vomit ing where she has thrown up at least 10 times along with several episodes of diarrhea. Denies abdominal pain. Denies definitive fever but has had some myalgia. Was not prescribed any medication for nausea at the time of her diagnosis because she states she was not having the nausea at that time ROS: See HPI - all other systems were reviewed and are otherwise negative Constitutional: no fever Eyes: no drainage, no blurred vision ENT: no runny nose, no sore throat Cardiovascular: no chest pain Resp: + SOB, positive cough GI: Positive vomiting, positive diarrhea, no abdominal pain : no dysuria Integumentary: no rash Allergy: no hives Musculoskeletal: no extremity pain or swelling Neurological: no numbness/tingling, no weakness MEDICATIONS: I agree with the patient medications as charted by the RN. ALLERGIES: I agree with the allergies as charted by the RN. PAST MEDICAL HISTORY/PAST SURGICAL HISTORY: Reviewed and agree as charted by RN. SOCIAL HISTORY: Reviewed and agree as charted by RN. FAMILY HISTORY: No significant familial comorbid conditions directly related to patient complaint EXAM: Reviewed vital signs as charted by RN. CONSTITUTIONAL: Alert and oriented and responds appropriately to questions. Well-appearing; well-nourished HEAD: Normocephalic; atraumatic EYES: PERRL; Conjunctivae clear, sclerae non-icteric ENT: normal nose; no rhinorrhea; moist mucous membranes; pharynx without lesions noted, no uvula edema or deviation, no tonsillar hypertrophy, phonation normal NECK: Supple without meningismus; non-tender; no cervical lymphadenopathy, no masses CARD: RRR; no murmurs, no clicks, no rubs, no gallops; symmetric distal pulses RESP: Normal chest excursion without splinting or tachypnea; breath sounds clear and equal bilaterally; no wheezes, no rhonchi, no rales, pulse oximetry 98% on room air not hypoxic ABD/GI: Normal bowel sounds; non-distended; soft, non-tender, no rebound, no guarding; no palpable organomegaly or masses. BACK: The back appears normal and is non-tender to palpation, there is no CVA tenderness EXT: Normal ROM in all joints; non-tender to palpation; no cyanosis, no effusions, no edema SKIN: Normal color for age and race; warm; dry; good turgor; no acute lesions noted NEURO: Moves all extremities equally; Motor and sensory function intact PSYCH: The patient's mood and manner are appropriate. Grooming and personal h ygiene are appropriate. MDM: 34-year-old female diagnosed COVID +6 days ago when she had cough and fever noticed continued cough, mild shortness of breath but more prominently is having nausea vomiting and diarrhea. Has not been able to keep anything down the last 1 to 2 days. Will obtain baseline screening labs hydrate patient give nausea medication, obtain chest x-ray TRAVEL OUTSIDE OF THE [place] IN LAST 30 DAYS: No - Related Data Allergies/Adverse Reactions: No Known Allergies Allergy (Unverified 02/19/20 12:50) Home Medications: Adderal and Zoloft Past Medical History - Social History Smoking Status: Former Smoker Chew tobacco use (# tins/day): No Frequency of alcohol use: None Drug Abuse: None Family History: Reviewed & Not Pertinent Patient has homicidal ideation: No Renal/ Medical History: Denies: Hx Peritoneal Dialysis Psychiatric Medical History: Reports: Hx Anxiety, Hx Attention Deficit Hyperactivity Disorder, Hx Depression Past Surgical History: Reports: Hx Breast Surgery - augmentation - Immunizations Hx Diphtheria, Pertussis, Tetanus Vaccination: Yes Physical Exam - Vital signs Vitals: Temp Pulse Resp BP Pulse Ox 99.0 F 83 20 126/77 H 98 02/19/20 12:34 02/19/20 12:34 02/19/20 12:34 02/19/20 12:34 02/19/20 12:34 Course - Re-evaluation Re-evalutation: 02/19/20 13:49 Patient states nausea is resolved after Zofran. Awaiting lab work. No abdominal pain on reexam 02/19/20 14:15 Lab work does not show abnormalities. Chest x-ray did not show abnormalities. Will discharge home with symptomatic treatment - Vital Signs Vital signs: Temp Pulse Resp BP Pulse Ox 99.0 F 83 20 126/77 H 98 02/19/20 12:34 02/19/20 12:34 02/19/20 12:34 02/19/20 12:34 02/19/20 12:34 - Laboratory Result Diagrams: 02/19/20 13:13 02/19/20 13:13 Laboratory results interpreted by me: 02/19/20 13:13 Glucose 126 H Discharge - Discharge Clinical Impression: Nausea vomiting and diarrhea, COVID-19 Condition: Stable Disposition: HOME, SELF-CARE Additional Instructions: Take Zofran for nausea vomiting push fluids at home follow-up with your primary care provider for reevaluation of symptoms return for fever onset of abdominal pain Prescriptions: Ondansetron [Zofran Odt 4 mg Tablet] 1 - 2 tab PO Q4H PRN #15 tab.rapdis PRN Reason: For Nausea/Vomiting Referrals: BETSY ARNOLD MD [ACTIVE STAFF] - Follow up as needed
[2020-02-19 15:11] VITALS: BP 128/78
== END 2020-02-19 15:08 | disposition home or self-care (01) ==
LOC: ER 12:26
DX: U07.1 COVID-19 (principal); R11.2 Nausea with vomiting, unspecified; R19.7 Diarrhea, unspecified; R06.02 Shortness of breath; M79.10 Myalgia, unspecified site; R05 Cough; F41.9 Anxiety disorder, unspecified; F32.9 Major depressive disorder, single episode, unspecified; F90.9 Attention-deficit hyperactivity disorder, unspecified type; Z79.899 Other long term (current) drug therapy; Z87.891 Personal history of nicotine dependence
CPT/HCPCS: 99284; 96361; 96374; 36415; 85025; 80053; 81001; 71045; J2405; J7030

== ENCOUNTER 2020-03-26 17:49 | Emergency (ER) | payer OTHER ==
--- NOTE | 2020-03-26 18:16 | ER Document Report ---
ED Medical Screen (RME) - General Chief Complaint: Shortness Of Breath Stated Complaint: SHORTNESS OF BREATH Time Seen by Provider: 03/26/20 18:12 Mode of Arrival: Ambulatory Information source: Patient Notes: 34-year-old female presented to ED for complaint of shortness of breath. She states intermittent chest pain. She states she was positive for Covid on February 23 but is still having fevers off and on with shortness of breath. She is alert oriented respirations a little short right now because she just ran across the yard. Will recheck Covid test as well as chest x-ray influenza test CBC chemistry and EKG. Menstrual cycles March 22 I have greeted and performed a rapid initial assessment of this patient. A comprehensive ED assessment and evaluation of the patient, analysis of test results and completion of medical decision making process will be conducted by an additional ED providers. TRAVEL OUTSIDE OF THE [place] IN LAST 30 DAYS: No - Related Data Allergies/Adverse Reactions: No Known Allergies Allergy (Unverified 02/19/20 12:50) Past Medical History Renal/ Medical History: Denies: Hx Peritoneal Dialysis Psychiatric Medical History: Reports: Hx Anxiety, Hx Attention Deficit Hyperactivity Disorder, Hx Depression Past Surgical History: Reports: Hx Breast Surgery - augmentation - Immunizations Hx Diphtheria, Pertussis, Tetanus Vaccination: Yes
[2020-03-26 21:02] LABS: ALBUMIN 4.4 g/dL (3.5-5.0); ALKALINE PHOSPHATASE 131 U/L (38-126); ANION GAP 11 (5-19); APPEARANCE,URINE CLEAR; ASPARTATE AMINO TRANSFERASE 25 U/L (14-36); BILIRUBIN,DIRECT 0.1 mg/dL (0.0-0.4); BILIRUBIN,TOTAL 0.5 mg/dL (0.2-1.3); BILIRUBIN,URINE NEGATIVE (NEGATIVE); BLOOD UREA NITROGEN 19 mg/dL (7-20); CALCIUM 8.8 mg/dL (8.4-10.2); CARBON DIOXIDE 23 mmol/L (22-30); CHLORIDE 105 mmol/L (98-107); COLOR,URINE YELLOW; GLUCOSE 113 mg/dL (75-110); GLUCOSE, URINE NEGATIVE (NEGATIVE); KETONES,URINE TRACE mg/dL (NEGATIVE); LEUKOCYTE ESTERASE,URINE TRACE (NEGATIVE); NITRITE,URINE NEGATIVE (NEGATIVE); POTASSIUM 3.7 mmol/L (3.6-5.0); PROTEIN,URINE NEGATIVE (NEGATIVE); TOTAL PROTEIN 8.1 g/dL (6.3-8.2); URINE SPECIFIC GRAVITY 1.029
[2020-03-26 21:03] LABS: A TYPE INFLUENZA AG NEGATIVE (NEGATIVE); B INFLUENZA AG NEGATIVE (NEGATIVE)
--- NOTE | 2020-03-26 22:28 | EKG REPORT ---
SEVERITY:- ABNORMAL ECG - SINUS TACHYCARDIA PROBABLE LEFT ATRIAL ABNORMALITY NONSPECIFIC T ABNORMALITIES, ANT-LAT LEADS : Confirmed by: Maximo Zarate MD 26-Mar-2020 22:27:28
[2020-03-26] MEDS ORDERED: NORMAL SALINE 1000 ML 1,000 ML IV ONE (22:56)
[2020-03-26] MEDS ORDERED: IPRATROPIUM/ALBUTEROL 0.5-2.5 MG/3 ML AMPUL NEB ONE (22:56)
--- NOTE | 2020-03-26 23:01 | ER Document Report ---
ED Respiratory Problem - General Chief Complaint: Shortness Of Breath Stated Complaint: SHORTNESS OF BREATH Time Seen by Provider: 03/26/20 18:12 Primary Care Provider: [facility] [Provider Group] - Follow up as needed Mode of Arrival: Ambulatory Notes: Patient presents complaining of shortness of breath and cough for the past 3 weeks. Patient states she has had chest discomfort intermittently for the past 3 weeks as well. Patient was diagnosed with Covid 3 weeks ago. Patient denies any nausea or vomiting although does report diarrhea x2 episodes today. Patient denies any fever. Patient states she has had a cough although she is uncertain if her chest pain may be attributed to her anxiety. TRAVEL OUTSIDE OF THE [place] IN LAST 30 DAYS: No - HPI Patient complains to provider of: Chest pain, Cough, Short of breath Onset: Other - 3 weeks Duration: Continuous Quality of pain: Achy Pain Level: 2 Context: denies: Recent immobilization, Recent surgery, Smoker Chest pain/discomfort: Center, Radiates to back Associated symptoms: Chest pain/discomfort, Cough, Wheezing Similar symptoms previously: Yes Recently seen / treated by doctor: No - Related Data Allergies/Adverse Reactions: No Known Allergies Allergy (Unverified 02/19/20 12:50) Past Medical History - General Information source: Patient - Social History Smoking Status: Never Smoker Frequency of alcohol use: None Drug Abuse: None Occupation: None Family History: Reviewed & Not Pertinent Renal/ Medical History: Denies: Hx Peritoneal Dialysis Psychiatric Medical History: Reports: Hx Anxiety, Hx Attention Deficit Hyperac tivity Disorder, Hx Depression Past Surgical History: Reports: Hx Breast Surgery - augmentation - Immunizations Hx Diphtheria, Pertussis, Tetanus Vaccination: Yes Review of Systems - Review of Systems Constitutional: Recent illness - Covid diagnosis 3 weeks ago. denies: Fever EENT: No symptoms reported Cardiovascular: Chest pain Respiratory: Cough, Short of breath, Wheezing Gastrointestinal: Diarrhea. denies: Abdominal pain, Nausea, Vomiting Genitourinary: No symptoms reported. denies: Dysuria Female Genitourinary: No symptoms reported Musculoskeletal: Back pain Skin: No symptoms reported Hematologic/Lymphatic: No symptoms reported Neurological/Psychological: Anxiety Physical Exam - Vital signs Vitals: Temp Pulse Resp BP Pulse Ox 98.0 F 108 H 18 136/91 H 96 03/26/20 18:22 03/26/20 18:22 03/26/20 18:22 03/26/20 18:22 03/26/20 18:22 - General General appearance: Appears well, Alert In distress: None - HEENT Head: Normocephalic, Atraumatic Eyes: Normal Conjunctiva: Normal Nasal: Normal Mouth/Lips: Normal Mucous membranes: Normal Neck: Normal, Supple. No: Lymphadenopathy - Respiratory Respiratory status: No respiratory distress Chest status: Pain with cough Breath sounds: Nonproductive cough, Wheezing Chest palpation: Tender - Cardiovascular Rhythm: Tachycardia Heart sounds: S1 appreciated, S2 appreciated Murmur: No - Abdominal Inspection: Normal Distension: No distension Tenderness: Nontender - Back Back: Normal. No: CVA tenderness - Extremities General upper extremity: Normal inspection, Nontender, Normal strength General lower extremity: Normal inspection, Nontender, Normal strength - Neurological Neuro grossly intact: Yes Cognition: Normal Mirza Coma Scale Eye Opening: Spontaneous [place] Coma Scale Verbal: Oriented [place] Coma Scale Motor: Obeys Commands [place] Coma Scale Total: 15 - Psychological Associated symptoms: Normal affect, Normal mood - Skin Skin Temperature: Warm Skin Moisture: Dry Skin Color: Normal Course - Re-evaluation Re-evalutation: 03/27/20 00:05 Patient's heart rate has normalized at this time, patient visibly more calm. Patient does have scattered wheezing with cough, patient has not received a breathing treatment for her IV fluids at this time. Discussed with patient the results of her tests. Patient is concerned about getting a repeat Covid test tonight. - Vital Signs Vital signs: Temp Pulse Resp BP Pulse Ox 97.9 F 87 16 132/87 H 96 03/27/20 00:02 03/27/20 00:02 03/27/20 00:02 03/27/20 00:02 03/27/20 00:02 - Laboratory Result Diagrams: 03/26/20 23:10 03/26/20 20:34 Laboratory results interpreted by me: 03/26/20 03/26/20 03/26/20 20:34 20:34 23:10 WBC 11.2 H Glucose 113 H Alkaline Phosphatase 131 H Urine Ketones TRACE H Urine Blood SMALL H Urine Urobilinogen 4.0 H Ur Leukocyte Esterase TRACE H - Diagnostic Test Radiology reviewed: Image reviewed, Reports reviewed - EKG Interpretation by Me EKG shows normal: Sinus rhythm Rate: Tachycardia When compared to previous EKG there are: No significant change Additional EKG results interpreted by me: 03/26/20 23:01 Sinus tachycardia with a rate of 96, QTc 435, no acute ischemic changes Discharge - Discharge Clinical Impression: Wheezing, History of 2019 novel coronavirus disease (COVID-19), Encounter for screening laboratory testing for COVID-19 virus Chest pain Qualifiers: Chest pain type: unspecified Qualified Code(s): R07.9 - Chest pain, unspecified Condition: Stable Disposition: HOME, SELF-CARE Instructions: COVID-19 Guidance for Persons Under Investigation, Inhaled Bronchodilators ([facility]), Steroid Medication, Upper Respiratory Illness ([facility]) Additional Instructions: Return immediately for any new or worsening symptoms Followup with your primary care provider, call Sunday to make a followup appointment Home quarantine while Covid test is pending at this time. Prescriptions: Prednisone [Deltasone 10 mg Tablet] 10 mg PO ASDIR #21 tablet Benzonatate [Tessalon Perles 100 mg Capsule] 100 mg PO ASDIR PRN #30 capsule PRN Reason: Forms: Return to School Referrals: [facility] [Provider Group] - Follow up as needed
--- NOTE | 2020-03-26 23:18 | RADIOLOGY REPORT (SQ) ---
EXAM DESCRIPTION: XR CHEST 1 VIEW COMPLETED DATE/TME: 03/26/2020 18:13 CLINICAL HISTORY: Short of breath positive for Covid COMPARISON: 02/19/20 FINDINGS: Single frontal radiograph view of the chest. Cardiomediastinal silhouette: Normal size and contour. Lungs: No consolidation, pneumothorax, or pleural effusion. Bones: No acute osseous abnormality. Upper abdomen: No abnormality identified. IMPRESSION: 1. No acute pulmonary process identified.
[2020-03-26 23:23] LABS: ABSOLUTE BASOPHILS # (AUTO) 0.1 10^3/uL (0.0-0.2); ABSOLUTE EOSINOPHILS # (AUTO) 0.5 10^3/uL (0.0-0.6); ABSOLUTE LYMPHOCYTES (AUTO) 2.9 10^3/uL (0.5-4.7); ABSOLUTE MONOCYTES (AUTO) 1.1 10^3/uL (0.1-1.4); ABSOLUTE NEUT (AUTO) 6.7 10^3/uL (1.7-8.2); BASOPHILS % (AUTO) 0.8 % (0-2); EOSINOPHILS % (AUTO) 4.6 % (0-6); HEMOGLOBIN 13.5 g/dL (12.0-15.5); LYMPHOCYTES % (AUTO) 25.4 % (13-45); MEAN CORPUSCULAR HEMOGLOBIN 30.5 pg (27.0-33.4); MEAN CORPUSCULAR HGB CONC 34.7 g/dL (32.0-36.0); MEAN CORPUSCULAR VOLUME 88 fl (80-97); MONOCYTES % (AUTO) 9.7 % (3-13); PLATELET COUNT 350 10^3/uL (150-450); RED BLOOD COUNT 4.43 10^6/uL (3.72-5.28); RED CELL DISTRIBUTION WIDTH 13.6 % (11.5-14.0); SEGMENTED NEUTROPHILS % (AUTO) 59.5 % (42-78); TOTAL CELLS COUNTED % (AUTO) 100 %; WHITE BLOOD COUNT 11.2 10^3/uL (4.0-10.5)
[2020-03-27] MEDS ORDERED: PREDNISONE 20 MG TABLET PO ONE (00:02)
[2020-03-27 00:03] VITALS: BP 132/87
[2020-03-27] MEDS ORDERED: ALBUTEROL SULFATE HFA (90 MCG/PUFF) 8 GM MDI (1 MDI/ER DISP) IH ONE (00:45)
== END 2020-03-27 01:20 | disposition home or self-care (01) ==
LOC: ER 17:49
DX: R06.02 Shortness of breath (principal); R05 Cough; R07.9 Chest pain, unspecified; Z20.828 Contact with and (suspected) exposure to other viral communicable diseases
CPT/HCPCS: 93005; 94640; 99285; 96360; 36415; 87086; 84703; 85025; 87635; 80053; 81001; 84484; 85379; 87804; 71045; 93010; J7512; J7030; J3490; C9803